=== PATIENT | female | born 1965 | race African-American/Black ===

== ENCOUNTER 2016-10-01 17:54 | Inpatient (IN) | payer BC ==
[~2016-10-01] VITALS: Ht 172.7 cm; Wt 97.0 kg
[~2016-10-01 17:54] MED LIST: ASPIR 8181 M1 PO; ATIVAN1 M1 PO; BYSTOLIC10 MG PO; CLONAZEPAM1 MG PO; DAILY VITE1 EAC1 PO; DYAZIDE, MA1 CAPSULE PO; ESTRACE42.5 GM VG; IBUPROFEN800 MG PO; LOPRESSOR50 MG PO; METFORMIN HCL500 MG PO; Norvasc PO; XARELTO15 MG PO; XARELTO20 MG PO; Zestril,Prinivil PO
[2016-10-01 18:41] LABS: HEMATOCRIT 36.3 % (36.0-46.0); MCH 30.1 PG (29.0-34.0); MCHC 33.9 G/DL (30.0-36.0); MCV 88.8 FL (83-99); MEAN PLAT.VOLUME 10.2 uM^3 (9.5-12.4); PLATELET COUNT 265 K/uL (156-360); RBC DIS.WIDTH-CV 12.9 % (11.8-14.6); RBC DIS.WIDTH-SD 40.5 % (39-53); RED BLOOD COUNT 4.09 M/uL (3.80-5.20)
[2016-10-01 18:50] LABS: CHLORIDE 108 mEq/L (99-109); POTASSIUM 3.9 mEq/L (3.7-5.4); SODIUM 138 mEq/L (136-147)
[2016-10-01 18:52] LABS: GLUCOSE 92 mg/dL (70-99)
[2016-10-01 18:53] LABS: ANION GAP 7 MEQ/L (2-14)
[2016-10-01 18:55] LABS: GFR ESTIMATE (CALCULATED) > 59 mL/min/
[2016-10-01 18:56] LABS: UREA NITROGEN (BUN) 13 mg/dL (9-23)
[2016-10-01 18:58] LABS: D-DIMER ELISA 1.04 mg/L FEU (< 0.57); INTER. NORMALIZED RATIO 1.1; PROTHROMBIN TIME 11.4 (9.2-11.2); PTT 32.2 (25-32)
[2016-10-01 19:01] LABS: TROP-I INTERPRETATION NEGATIVE; TROPONIN-I < 0.01 ng/mL (0.0-0.30)
[2016-10-01] MEDS ORDERED: CLONAZEPAM2 MG PO (21:00)
[2016-10-01] MEDS ORDERED: XARELTO20 MG PO (21:00)
[2016-10-01] MEDS ORDERED: VITAMIN D31000 UNIT PO (21:01)
[2016-10-02] VITALS (7 sets, daily range): BP systolic 129–143; BP diastolic 75–100
[2016-10-02 04:32] LABS: HEMATOCRIT 34.4 % (36.0-46.0); MCH 30.1 PG (29.0-34.0); MCHC 33.7 G/DL (30.0-36.0); MCV 89.1 FL (83-99); PLATELET COUNT 239 K/uL (156-360); RBC DIS.WIDTH-CV 12.8 % (11.8-14.6); RBC DIS.WIDTH-SD 40.4 % (39-53); RED BLOOD COUNT 3.86 M/uL (3.80-5.20); WHITE BLOOD COUNT 5.5 K/uL (4.1-10.2)
[2016-10-03 03:44] VITALS: BP 127/85
[2016-10-03 06:28] LABS: INTER. NORMALIZED RATIO 1.1; PROTHROMBIN TIME 11.4 (9.2-11.2)
[2016-10-03 07:21] VITALS: BP 159/90
[2016-10-03 11:35] LABS: POINT-OF-CARE METER ID UU14174225
[2016-10-03 11:43] VITALS: BP 161/105
[2016-10-03] MEDS ORDERED: NICOTINE PATCH1 EAC2 TD (15:17)
[2016-10-03] MEDS ORDERED: WARFARIN SODIUM5 MG PO (15:17)
[2016-10-03] MEDS ORDERED: TRIAMTERENE-HC1 EACH PO (15:17)
[2016-10-03] MEDS ORDERED: LOVENOX100 MG/1 M SC (15:17)
== END 2016-10-03 15:56 | disposition home or self-care (01) | DRG 176 ==
LOC: EME 17:54 → EDOF 22:51 → 5SOUTH 22:51 → EDOF 23:36 → 5SOUTH 10-02 00:45
PROVIDERS: Emergency Medicine; Hospitalist; Internal Medicine
DX: I26.99 Other pulmonary embolism without acute cor pulmonale (principal); D68.2 Hereditary deficiency of other clotting factors; Z91.138 Patient's unintentional underdosing of medication regimen for other reason; T45.516A Underdosing of anticoagulants, initial encounter; J98.11 Atelectasis; E11.9 Type 2 diabetes mellitus without complications; I10 Essential (primary) hypertension; F41.9 Anxiety disorder, unspecified; Z86.711 Personal history of pulmonary embolism; Z86.718 Personal history of other venous thrombosis and embolism; Z86.73 Personal history of transient ischemic attack (TIA), and cerebral infarction without residual deficits; F17.210 Nicotine dependence, cigarettes, uncomplicated; Z79.01 Long term (current) use of anticoagulants
CPT/HCPCS: 71020; 71275; 80048; 82948; 84484; 85027; 85379; 85610; 85730; 93005; 99281; 99285; J1650; J1815

== ENCOUNTER 2016-11-03 15:28 | Emergency (ER) | payer BC ==
[~2016-11-03] VITALS: Ht 172.7 cm; Wt 95.3 kg
[~2016-11-03 15:28] MED LIST changes: +CLONAZEPAM2 MG PO; +LOVENOX100 MG/1 M SC; +NICOTINE PATCH1 EAC2 TD; +TRIAMTERENE-HC1 EACH PO; +VITAMIN D31000 UNIT PO; +WARFARIN SODIUM5 MG PO
[2016-11-03 16:54] LABS: HEMATOCRIT 40.4 % (36.0-46.0); MCH 29.8 PG (29.0-34.0); MCHC 33.9 G/DL (30.0-36.0); MEAN PLAT.VOLUME 10.2 uM^3 (9.5-12.4); PLATELET COUNT 257 K/uL (156-360); RBC DIS.WIDTH-CV 12.9 % (11.8-14.6); RBC DIS.WIDTH-SD 40.8 % (39-53); RED BLOOD COUNT 4.59 M/uL (3.80-5.20); WHITE BLOOD COUNT 5.8 K/uL (4.1-10.2)
[2016-11-03 17:04] LABS: CHLORIDE 104 mEq/L (99-109); POTASSIUM 4.2 mEq/L (3.7-5.4); SODIUM 138 mEq/L (136-147)
[2016-11-03 17:05] LABS: GLUCOSE 87 mg/dL (70-99)
[2016-11-03 17:07] LABS: ANION GAP 8 MEQ/L (2-14)
[2016-11-03 17:08] LABS: D-DIMER ELISA 0.18 mg/L FEU (< 0.57)
[2016-11-03 17:09] LABS: GFR ESTIMATE (CALCULATED) > 59 mL/min/
[2016-11-03 17:10] LABS: UREA NITROGEN (BUN) 12 mg/dL (9-23)
[2016-11-03 18:42] VITALS: BP 127/91
== END 2016-11-03 18:42 | disposition home or self-care (01) ==
LOC: EME 15:28
PROVIDERS: Physician Assistant
DX: R07.89 Other chest pain (principal); M62.830 Muscle spasm of back; Z86.711 Personal history of pulmonary embolism; Z79.01 Long term (current) use of anticoagulants; I10 Essential (primary) hypertension; E11.9 Type 2 diabetes mellitus without complications; Z87.891 Personal history of nicotine dependence
CPT/HCPCS: 71020; 80048; 85027; 85379; 99281; 99284

== ENCOUNTER → 2017-06-18 | Outpatient (CLI) | payer BC | END | disposition home or self-care (01) | LOC: CDC 10:51 | DX: Z00.00 Encounter for general adult medical examination without abnormal findings (principal); R94.31 Abnormal electrocardiogram [ECG] [EKG] | CPT/HCPCS: 93000 ==